=== PATIENT | female | born 1995 | race Caucasian/White ===

== ENCOUNTER 2020-11-21 21:53 | Emergency (ER) | payer MEDICAID, SELFPAY ==
[2020-11-21 21:56] VITALS: BP 112/66; PULSE 107; RESP 16; TEMP 36.4; O2SAT 98; BMI 31.1
--- NOTE | 2020-11-21 22:46 | US_ITS ---
HISTORY: bleeding -- Placenta previa EXAMINATION: US OB Greater Than 14 Weeks TECHNIQUE: Transabdominal and transvaginal (for optimal evaluation of the fetus) pelvic ultrasound was performed. Grayscale, spectral waveform, and color flow Doppler evaluation of the adnexa. COMPARISON: None LMP: 07/21/20. Beta-hCG: Unknown. Provided EGA: 17 weeks 4 days. FINDINGS: INTRAUTERINE GESTATION(s): Single. ESTIMATED GESTATIONAL AGE: 18 weeks 3 days. ESTIMATED DUE DATE (VERONICA): 04/21/21. PRESENTATION: cephalic. PLACENTA: anterior. Complete previa. Focal hypoechoic collection measures up to 3.8 x 3.1 x 1.2 cm. CERVIX: The cervix is closed. MATERNAL OVARIES: No adnexal masses. FREE FLUID: None. US/OB Limited With Biometrics IMPRESSION: Single live intrauterine of 18 weeks 3 days. Complete placenta previa. Subacute to chronic placental hemorrhage measures up to 3.8 cm. at 0038 Reported and signed by: Domingo Isaac MD Electronically Signed: Domingo Isaac MD at 0:37 EDT Tel , Service support ,
--- NOTE | 2020-11-21 23:40 | ED.VIS.FEGU ---
HPI HPI - Female History of Present Illness Chief Complaint: Vag Bld, Preg Informant: patient Narrative Narrative: 25-year-old female G7, P4 Ab2 presents approximately 17 weeks with vaginal bleeding. She states that she has been seen several times this with vaginal bleeding and was diagnosed with a subchorionic hemorrhage as well as placenta previa. She states she has seen MFM in [place] and has an appointment later this month with Dr. Maricruz [place]. She states that today she developed some bright red bleeding that seem to taper off but then returned tonight. She states she still feeling the baby move. PFSH PFSH Allergy/AdvReac Type Severity Reaction Status Date / Time amoxicillin [From Augmentin] Allergy Nausea Verified 11/21/20 21:56 clavulanic acid Allergy Nausea Verified 11/21/20 21:56 [From Augmentin] hydrocodone Allergy Hives Verified 11/21/20 21:56 succinylcholine Allergy NEEDS Verified 11/21/20 21:56 FOLLOW-UP Social History (Updated 11/21/20 @ 23:[address] Kashif Coleman, DO) Smoking Status: Current every day smoker tobacco type: cigarettes substance use type: does not use ROS ROS ED Constitutional Constitutional ED: Denies chills or weight loss Eyes Eyes: Denies change in vision or diplopia ENT ENT ED: Denies ear pain, rhinorrhea or sore throat Cardiovascular Cardiovascular: Denies chest pain, orthopnea, palpitations or racing heartbeat Respiratory/Chest Respiratory/Chest: Denies cough, dyspnea or orthopnea Gastrointestinal Gastrointestinal: Denies abdominal pain, diarrhea, nausea or vomiting Genitourinary Genitourinary ED: Reports other Details: Vaginal bleeding in ; Denies dysuria, hematuria or urinary frequency Musculoskeletal Musculoskeletal: Denies arthralgias or myalgias Integumentary Denies abscess or rash Neurologic Neurologic: Denies headache(s) or weakness Psychiatric Psychiatric: Denies anxiety, depression, suicidal ideation or suicidal thoughts Endocrine Endocrinology: Denies polydipsia, polyphagia or polyuria Allergic/Immunologic Allergic/Immunologic ED: Denies mouth swelling, tongue swelling or urticaria EXAM Physical Exam Const Vital Signs: 11/21/20 21:56 Temperature 97.6 F L Temperature Source Temporal Pulse Rate 107 H Respiratory Rate 16 Blood Pressure 112/66 Blood Pressure Mean 81 Pulse Ox 98 Oxygen Delivery Method Room Air Positive well nourished and well developed General Appearance ED: well developed HEENT Reports normocephalic, head/scalp atraumatic and moist mucous membranes Eyes PERRL and EOMs intact bilaterally Neck no lymphadenopathy, supple and no JVD Resp normal respiratory effort and clear to auscultation bilaterally Cardio regular rate, regular rhythm and no murmurs GI normal to inspection, nondistended, normoactive bowel sounds and non-tender Palpation: soft Back/Spine no CVA tenderness and normal ROM Extremity normal to inspection General Extremety ED: Negative for edema General Extremity: Negative for edema Neuro oriented x3 and CN's II-XII intact bilaterally Sensorium / Orientation: alert Motor Exam: strength 5/5 throughout Psych mental status grossly normal Mood & Affect: Negative for depressed or tearful Skin no rashes or lesions noted and no wounds MDM MDM MDM Narrative Medical decision making narrative: Patient has been positive. Hemoglobin 10.9. I obtain this because I do not have any prior labs for her and she was started to bleed is relieved please give us a starting point. Obstetric ultrasound shows a slip of 18 weeks 3 days. There is a complete placenta previa. Subacute to chronic placental hemorrhage. This measures 3.8 cm. At this point bleeding appears mild patient will call M on Tuesday return if worsening try to do as much rest as possible this weekend. Lab Data Attestation: I reviewed the patient's lab results. Labs: Laboratory Results - last 24 hr 11/22/20 00:00 Hgb 10.9 L Hct 33.0 L Radiography Diagnostic Testing: Radiology Impression Obstetrics Ultrasound 11/21/20 22:46 IMPRESSION: Single live intrauterine of 18 weeks 3 days. Complete placenta previa. Subacute to chronic placental hemorrhage measures up to 3.8 cm. at 0038 Reported and signed by: Domingo Isaac MD Electronically Signed: Domingo Isaac MD at 0:37 EDT Tel , Service support , Discharge Plan Triage Chief Complaint: Vag Bld, Preg ED Provider: Kashif Coleman Dx/Rx/DC Orders Clinical Impression: Vaginal bleeding before 22 weeks gestation, Placenta previa Instructions: Placenta Previa Primary Care Provider: Jose Wray Referrals: Brook Garcia MD [STAFF PHYSICIAN] - As soon as possible Jose Wray MD [Primary Care Provider] - Activity Restrictions/Additional Instructions: Please call maternal- medicine in [place] on Tuesday. Return if worsening or concerns. Disposition Disposition: Home, Self Care
[2020-11-22 00:14] LABS: Hemoglobin 10.9 g/dL (12.0-15.0)
[2020-11-22 00:57] VITALS: BP 108/71; PULSE 89; RESP 16; O2SAT 98
== END 2020-11-22 00:57 | disposition home or self-care (01) ==
PROVIDERS: Emergency Provider Emergency Medicine; PCP Family Medicine
DX: O44.12 Complete placenta previa with hemorrhage, second trimester (principal); O99.332 Smoking (tobacco) complicating pregnancy, second trimester; F17.210 Nicotine dependence, cigarettes, uncomplicated; Z3A.18 18 weeks gestation of pregnancy
CPT/HCPCS: 76816; 85014; 85018; 86900; 86901; 99282

== ENCOUNTER → 2021-02-16 10:35 | Outpatient (CLI) | payer MEDICAID, SELFPAY ==
[2021-02-16 12:02] LABS: Absolute Lymphocyte Count 3.21 X10^3/uL (0.83-4.51); Absolute Neutrophil Count 11.4 X10^3/uL (2.0-7.7); Basophil# 0.09 X10^3/uL; Basophil% 0.6 % (0-1); Eosinophil# 0.31 X10^3/uL; Eosinophils% 1.9 % (0-5); Hematocrit 32.6 % (37-47); Hemoglobin 10.8 g/dL (12.0-15.0); Lymphocyte # 3.21 X10^3/ul (0.83-4.51); Lymphocyte % 19.8 % (19-41); Mean Corp Hgb Conc 33.1 g/dL (32-36); Mean Corpuscular Hgb 29.6 pg (27.0-32.0); Mean Corpuscular Volume 89.3 fL (81-99); Monocyte# 1.05 X10^3/uL; Monocyte% 6.5 % (0-10); NRBC Flagged by Analyzer 0 % (0-5); Neutrophil # 11.37 X10^3/uL (2.7-7.7); Platelet Count 410 K/mm3 (150-450); RBC Distribution Width CV 12.8 % (11.6-14.6); RBC Distribution Width SD 42.1 fl (35.1-43.9); Red Blood Count 3.65 M/mm3 (4.2-5.4); White Blood Count 16.2 K/mm3 (4.4-11.0)
== END ==
PROVIDERS: PCP Family Medicine
DX: O09.899 Supervision of other high risk pregnancies, unspecified trimester (principal); O44.00 Complete placenta previa NOS or without hemorrhage, unspecified trimester; Z3A.00 Weeks of gestation of pregnancy not specified
CPT/HCPCS: 36415; 85025

== ENCOUNTER 2021-03-09 09:55 | Outpatient (CLI) | payer MEDICAID, SELFPAY ==
[2021-03-09 10:12] VITALS: BP 120/78; PULSE 113; TEMP 36.4; O2SAT 98
[2021-03-09 10:29] LABS: Absolute Lymphocyte Count 3.18 X10^3/uL (0.83-4.51); Absolute Neutrophil Count 15.5 X10^3/uL (2.0-7.7); Basophil# 0.11 X10^3/uL; Basophil% 0.5 % (0-1); Eosinophil# 0.33 X10^3/uL; Eosinophils% 1.6 % (0-5); Hematocrit 34.1 % (37-47); Hemoglobin 11.2 g/dL (12.0-15.0); Lymphocyte # 3.18 X10^3/ul (0.83-4.51); Lymphocyte % 15.5 % (19-41); Mean Corp Hgb Conc 32.8 g/dL (32-36); Mean Corpuscular Volume 88.3 fL (81-99); Mean Platelet Vol. 10.1 fl (6.2-12.0); Monocyte# 1.12 X10^3/uL; Monocyte% 5.4 % (0-10); NRBC Flagged by Analyzer 0 % (0-5); Neutrophil # 15.53 X10^3/uL (2.7-7.7); Neutrophil % 75.5 % (47-70); Platelet Count 459 K/mm3 (150-450); RBC Distribution Width CV 13.2 % (11.6-14.6); RBC Distribution Width SD 42.9 fl (35.1-43.9); Red Blood Count 3.86 M/mm3 (4.2-5.4); White Blood Count 20.6 K/mm3 (4.4-11.0)
[2021-03-09 10:38] VITALS: BMI 34.3
--- NOTE | 2021-03-09 10:51 | OB.TRI.HP_ITS ---
HPI - General HPI Narrative MERVAT ANDRES, is a 25 F who presents with bleeding and LOF. She says this morning she started having leaking of small amounts of fluid with movements. No large gush of fluid. She has had light bleeding, which has been minimal so far. No heavy bleeding. No ctx's but feeling pressure. Good FM. PFSH PFSH Allergy/AdvReac Type Severity Reaction Status Date / Time amoxicillin [From Augmentin] Allergy Nausea Verified 03/09/21 10:36 clavulanic acid Allergy Nausea Verified 03/09/21 10:36 [From Augmentin] hydrocodone Allergy Hives Verified 03/09/21 10:36 succinylcholine Allergy NEEDS Verified 03/09/21 10:36 FOLLOW-UP Social History (Updated 11/21/20 @ 23:[address] Kashif Coleman, DO) Smoking Status: Current every day smoker tobacco type: cigarettes substance use type: does not use Physical Exam Const alert and no apparent distress General Appearance: comfortable Resp normal respiratory effort GI soft to palpation and non-tender Speculum Exam - Cervix: cervical os closed and other Scant blood along vaginal mucosa, no active bleeding, no leaking of fluid from cervical os, no pooling of fluid or blood Assessment & Plan (1) Placenta previa: (2) 33 weeks gestation of : PLAN: at 33 week gestation here with VB and LOF. Known placenta previa, VSD of fetus, A2GDM on insulin. Possible accreta. Scheduled for a planned delivery at 35 week gestation with radiology scheduler oncology and possible hysterectomy. - SSE: No pooling of fluid, fern negative. MVP 5 cm on bedside TAUS. Blood does appear somewhat watered down. Possible repeat fern during admission - Vertex on ultrasound - Cvx closed and long on exam. No contractions. Not in PTL at this time - Hgb 11 and HDS - Category 1 tracing - BG 82 - Requires admission for BMZ given insulin dependent GDM - Recommend admission at tertiary care center for further monitoring. Called MFM induction machine setter at [facility] (3) Vaginal bleeding: (4) Gestational diabetes:
[2021-03-09 10:55] LABS: Bedside Glucose 82 mg/dL (70-110)
[2021-03-09 12:09] VITALS: BP 111/63; PULSE 89; TEMP 36.4; O2SAT 98
== END 2021-03-09 12:45 | disposition short-term general hospital (02) ==
LOC: WPOUT 10:02 → WP 10:02
PROVIDERS: PCP Family Medicine; Visit Provider Obstetrics & Gynecology
DX: O44.13 Complete placenta previa with hemorrhage, third trimester (principal); O24.414 Gestational diabetes mellitus in pregnancy, insulin controlled; O99.333 Smoking (tobacco) complicating pregnancy, third trimester; F17.210 Nicotine dependence, cigarettes, uncomplicated; Z3A.33 33 weeks gestation of pregnancy
CPT/HCPCS: 36415; 59025; 59050; 76815; 82962; 85025; 86850; 86900; 86901; 99218; G0378